=== PATIENT | male | born 1970 | race Caucasian/White ===

== ENCOUNTER → 2021-09-28 | Outpatient (CLI) | payer BC ==
--- NOTE | 2021-09-28 13:42 | CTL ---
EXAMINATION TYPE: CT Low Dose Lung DATE OF EXAM ORDERED: 09/28/2021 HISTORY: 51-year-old male with Z8 7.891, personal history of tobacco use.. Lung cancer screening CT DLP: 80.[address] CTDI: 2.1 mGy Automated exposure control for dose reduction was used. SCREENING VISIT: Baseline exam COMPARISON: None TECHNIQUE: Low dose computed tomography scan was performed through the chest with coronal and sagitta l reconstructions performed. CT DIAGNOSTIC QUALITY: Satisfactory FINDINGS: Heart normal size without pericardial effusion. Aorta normal caliber with conventional branching anatomy. Few nonenlarged lymph nodes in the AP window and lower paratracheal region measuring up to 8 mm. No t horacic lymphadenopathy by CT size criteria. Trace bilateral gynecomastia. There is moderate centrilobular emphysema. Mild diffuse bronchial wall thickening.. Strandy areas of atelectasis or scarring in the lungs. 5 mm subpleural pulmonary nodule periphery of the right lower lung, axial image 232. 7 mm subpleural pulmonary nodule lateral left lower lobe, axial image 26. 8 mm irregular nodule right upper lobe, axial image 115. Tiny adjacent 4 mm nodule just below, axial image 1:30. No consolidation or pleural effusion. Prominent ingested debris distending the stomach. Otherwise, visualized upper abdomen. Bones: Mild degenerative disc disease lower thoracic spine. Chronic appearing minimal anterior wedgin g at T11 with accentuated lower thoracic kyphosis. IMPRESSION: 1. LungRADS Category 4A ( Probably suspicious, 5-15% chance of malignancy). Scattered pulmonary nodul es, largest is irregular in the right upper lobe measuring up to 8 mm. Three-month follow-up CT to re assess. If any enlarging nodules are encountered at that time, recommend pulmonary/surgical evaluatio n and/or PET/CT. 2. COPD with moderate emphysema. Recommend smoking cessation. CT LUNG RAD AND CT CHEST RECOMMENDATION: Lung-Rad 4A Suspicious: Follow-up 3 month LDCT or PET/CT may be used when there is a > 8 mm solid component.
== END | disposition home or self-care (01) ==
LOC: RADCTMAIN 13:09
PROVIDERS: ATTEND Family Medicine
DX: Z12.2 Encounter for screening for malignant neoplasm of respiratory organs (principal); J43.9 Emphysema, unspecified; Z72.0 Tobacco use
CPT/HCPCS: 71271

== ENCOUNTER → 2021-12-28 | Outpatient (CLI) | payer BC ==
--- NOTE | 2021-12-28 13:07 | CT ---
EXAMINATION TYPE: CT chest w con DATE OF EXAM: 12/28/2021 COMPARISON: CT dated 09/28/2021 HISTORY: Pulmonary nodule CT DLP: 535 mGycm Automated exposure control for dose reduction was used. TECHNIQUE: CT scan of the chest is performed with IV Contrast, patient injected with 100 ml mL of Isovue 300. FINDINGS: LUNGS: The previously described irregular 8mm nodule in the right upper lobe has completely resolved in the interim consistent with a completely resolved inflammatory/infectious lesion. The adjacent 4 m m nodule is actually smaller measuring 3 mm today. Stable 7 mm left lower lobe pleural-based nodule a s well as the 5 mm nodule at the anterolateral aspect of the right lower lobe. No definite new or pro gressive lung nodule identified. Persistent moderate pulmonary emphysematous changes, predominantly c entrilobular and most evident involving the right upper lobe. Patent central airways. No pleural effu nadine or pneumothorax. MEDIASTINUM: No gross cardiomegaly. No pericardial effusion. The pulmonary trunk measures 2.9 cm. Unr emarkable major mediastinal vessels. No pathologically enlarged lymph nodes in the chest. OTHER: Stable anterior wedging of T11 vertebral body. IMPRESSION: Complete resolution of the previously seen irregular 8 mm lesion in the right upper lung lobe. Stable remainder of the previously described lung nodules measuring up to 7 mm. No new or progressive lung nodule. Recommend continued annual screening in 12 months. Other incidental findings as described abo ve.
== END | disposition home or self-care (01) ==
LOC: RADCTMAIN 10:19
PROVIDERS: ATTEND Internal Medicine
DX: R91.1 Solitary pulmonary nodule (principal)
CPT/HCPCS: 71260; Q9967

== ENCOUNTER → 2023-01-17 | Outpatient (CLI) | payer BC ==
--- NOTE | 2023-01-18 11:08 | CT ---
EXAMINATION TYPE: CT chest w con CT DLP: 420.3 mGycm, Automated exposure control for dose reduction was used. DATE OF EXAM: 01/17/2023 4:49 PM COMPARISON: Multiple CTs of the chest with most recent on 12/28/2021 and 09/28/2021 CLINICAL INDICATION:Male, 52 years old with history of R91.1 pulmonary nodule; Follow up for lung nod ule. TECHNIQUE: Multiple axial images were obtained through the chest. Sagittal and coronal reformats were created for review. Contrast used:100cc mL of Isovue 300 with IV Contrast Oral contrast used: none. FINDINGS: LUNGS/ PLEURA: * Right lower lobe 5 mm pulmonary nodule laterally series 3 image 40 is stable given differences in technique back to 2020. * Left lower lobe 6 cm pulmonary nodule laterally series 3 image 48 is stable given differences in t echnique back to 2020. * Right upper lobe irregular nodule is less solid component on today's exam and more groundglass ish suring 9 mm. Series 3 image 26. Moderate centrilobular emphysema changes. No focal consolidation, pneumothorax or pleural effusion. N o new pulmonary nodules. AIRWAY: Patent and unremarkable. HEART: Size within normal limits. MEDIASTINUM: No gross evidence of adenopathy. VASCULATURE: No aortic aneurysm. MUSCULOSKELETAL: No acute osseous abnormalities, increased kyphotic curvature of the lower thoracic s pine. Mild multilevel disc degeneration changes. SOFT TISSUES/LYMPH NODES: Mild gynecomastia changes bilaterally. LOWER NECK: No significant findings. UPPER ABDOMEN: No significant findings. IMPRESSION: 1. Stable or improved pulmonary nodules. No new suspicious pulmonary nodules. Continued low dose danial g screening yearly for surveillance is recommended. 2. Moderate emphysema.
== END | disposition home or self-care (01) ==
LOC: RADCTMAIN 16:24
PROVIDERS: ATTEND Internal Medicine
DX: J43.2 Centrilobular emphysema (principal); R91.8 Other nonspecific abnormal finding of lung field
CPT/HCPCS: 71260; Q9967

== ENCOUNTER → 2024-11-12 | Outpatient (CLI) | payer BC ==
--- NOTE | 2024-11-12 12:37 | CTL ---
EXAMINATION TYPE: CT Low Dose Lung DATE OF EXAM ORDERED: 11/12/2024 COMPARISON: Prior chest CT January 17, 2023 and older studies. CLINICAL INDICATION: Male, 54 years old with history of Z12.2 SCREENING LUNG CA Z87.891 FORMER SMOKER ; [facility], Former smoker, 1.5 ppd x 22 years., Lung cancer screening, History of Smoking/tobacco use. TECHNIQUE: Low dose computed tomography scan was performed through the chest at 1 mm thick sections a nd reconstructed images in multiple planes at 1 mm and [address] DLP: 77.[address] CTDI: 2.1 mGy Automated exposure control for dose reduction was used. CT DIAGNOSTIC QUALITY: Satisfactory FINDINGS: Nodules: RUL: More prominent scarlike opacity in the lateral right upper lobe measures 2.0 x 2.1 cm axial sheldon ge 124. Currently only slight nodular thickening inferiorly is present. RML: None. RLL: Stable 4 to 5 mm peripheral right lower lobe pulmonary nodule axial image 233. MUNA: None. LLL: Stable 6 x 5 mm peripheral left lower lobe pulmonary nodule axial image 234. There is new 9 mm groundglass nodule medial left lower lobe axial image 152. LUNGS: COPD: Severity: Moderate Fibrosis: Severity: None Lymph nodes: None Other findings: None RIGHT PLEURAL SPACE: Effusion: None Calcification: None Thickening: None Pneumothorax: None LEFT PLEURAL SPACE: Effusion: None Calcification: None Thickening: None Pneumothorax: None HEART: Heart Size: Normal Coronary Calcification: None Pericardial Effusion: None OTHER FINDINGS: Upper abdomen: None Bony thorax: None Supraclavicular region: None Other: None IMPRESSION: Some new suspicious areas are present. CT LUNG RAD AND CT CHEST RECOMMENDATION: Lung-Rad 4A Suspicious: Follow-up 3 month LDCT or PET/CT may be used when there is a > 8 mm solid component. S Modifier (other clinically significant findings): None Advise follow-up CT in 3 months to reassess particularly right upper lobe area of increasing size wit hout greater than 8 mm nodular solid component. [facility], , 11/12/2024 12:35 PM
== END | disposition home or self-care (01) ==
LOC: RADCTMAIN 10:48
PROVIDERS: ATTEND Internal Medicine
DX: Z12.2 Encounter for screening for malignant neoplasm of respiratory organs (principal); F17.210 Nicotine dependence, cigarettes, uncomplicated
CPT/HCPCS: 71271

== ENCOUNTER → 2024-11-26 | Outpatient (CLI) | payer BC ==
--- NOTE | 2024-11-26 16:11 | PE ---
EXAMINATION TYPE: PET CT fusion skull to thigh DATE OF EXAM: 11/26/2024 COMPARISON: Low-dose lung screening CT November 12, [address] studies[address] HISTORY: Solitary pulmonary nodule, abnormal CT. TECHNIQUE: Following the intravenous administration of 9.49 mCi of F-18 FDG, whole body images are p erformed from the skull base to the midthigh. Images are reviewed on the computer in the coronal, ax ial, and sagittal planes. Reconstructed rotating images are created on independent workstation and r eviewed on the computer. A localization and attenuation correction CT is performed in conjunction w ith the PET scan. Blood glucose level equals 86. SCAN: Initial Scan FINDINGS: SKULL BASE AND NECK: No areas of abnormal suspicious hypermetabolic uptake. CHEST, MEDIASTINUM, AND HILAR REGION: Moderate underlying emphysematous change is redemonstrated. Per sistent heterogeneous scar like opacity in the right upper lobe measuring 1.6 x 1.5 cm axial image 94 . No abnormal hypermetabolic uptake. Superior medial left upper lobe subcentimeter groundglass opacit y axial image 98 is less prominent without abnormal hypermetabolic uptake. No abnormal hypermetabolic uptake in the entire thorax. ABDOMEN AND PELVIS: Normal excretion is present. No hypermetabolic adrenal masses. No suspicious hype rmetabolic uptake. OSSEOUS STRUCTURES: No abnormal hypermetabolic uptake. OTHER CT: No suspicious incidental finding. IMPRESSION: No abnormal hypermetabolic uptake to suggest malignancy. Favor postinflammatory change an d/or scar tissue. Advise follow-up CT in 3-6 months time to reassess. [facility], , 11/26/2024 4:08 PM
== END | disposition home or self-care (01) ==
LOC: RADPETMAIN 13:28
PROVIDERS: ATTEND Internal Medicine
DX: R91.8 Other nonspecific abnormal finding of lung field (principal)
CPT/HCPCS: 78815; A9552

== ENCOUNTER → 2025-04-15 | Outpatient (CLI) | payer BC ==
--- NOTE | 2025-04-15 12:12 | CT ---
EXAMINATION TYPE: CT chest w con DATE OF EXAM: 04/15/2025 11:38 AM COMPARISON: 11/26/2024, 01/17/2023, 11/12/2024 CLINICAL INDICATION: Male, 54 years old with history of R91.8 OTHER NONSPECIFIC ABNORMAL FINDING OF L KARUNA F; [facility], lung nodule TECHNIQUE: Multiple axial images were obtained through the chest. Sagittal and coronal reformats were created for review. MIP was performed on a separate workstation. Contrast used:100 mL of Isovue 300 with IV Contrast (None if empty) Oral contrast used: (None if empty) CT DLP: 539 mGycm, Automated exposure control for dose reduction was used. FINDINGS: LUNGS/ PLEURA: Stable right midlung/upper lobe reticular groundglass opacity region measuring up to 2 1 mm previously 12 mm and 01/17/2023. There is moderate centrilobular emphysema changes throughout the lungs. Stable right lower lobe lateral pulmonary nodule measuring 4 mm series 3 image 52 dating back to at least . Stable left lower lobe lateral subpleural nodule measuring 5 mm dating back to at least 2022. No focal consolidation, pneumothorax or pleural effusion. AIRWAY: Patent and unremarkable. HEART: Size within normal limits. No significant coronary artery calcifications. MEDIASTINUM: No gross evidence of adenopathy. VASCULATURE: No aortic aneurysm. MUSCULOSKELETAL: No acute osseous abnormalities SOFT TISSUES/LYMPH NODES: Unremarkable. LOWER NECK: No significant findings. UPPER ABDOMEN: No significant findings. IMPRESSION: Area within the right midlung/superior lobe has steadily increased in size from 01/17/2023 now measuri ng 21 mm previously 12 mm. Findings could represent minimally invasive bronchoalveolar carcinoma supe rimposed on moderate emphysema. Continued surveillance recommended. [facility], , 04/15/2025 12:09 PM
== END | disposition home or self-care (01) ==
LOC: RADCTMAIN 10:45
PROVIDERS: ATTEND Internal Medicine
DX: R91.8 Other nonspecific abnormal finding of lung field (principal); J43.2 Centrilobular emphysema
CPT/HCPCS: 71260; Q9967

== ENCOUNTER 2025-05-05 09:34 | Day surgery (SDC) | payer BC ==
[2025-05-04 09:55] VITALS: BMI 25.7
[~2025-05-05 09:34] MED LIST: LACTATED RINGERS 1,000 ML IV SCH
[2025-05-05 10:13] VITALS: TEMP 97.5
[2025-05-05] MEDS: IV FLUID CONTINUATION 1,000 ML IV ONE (10:13)
[2025-05-05] MEDS: LACTATED RINGERS 1,000 ML IV SCH (10:13)
--- NOTE | 2025-05-05 10:21 | CT ---
EXAMINATION TYPE: CT Chest wo ION protocol DATE OF EXAM: 05/05/2025 COMPARISON: CT chest 04/15/2025, 01/17/2023, 12/28/2021 PET/CT 11/26/2024, CT low-dose lung 11/12/2024, CLINICAL INDICATION: Male, 54 years old with history of ION BRONCH; [facility], pre surgical ion TECHNIQUE: CT scan of the thorax is performed without IV contrast. CT DLP: 331.[address] CTDI: 9.00 mGy Automated exposure control for dose reduction was used. FINDINGS: LUNGS: No pleural effusion or pneumothorax. Moderate centrilobular emphysematous changes. Stable righ t upper lobe 2.2 x 1.9 cm reticular groundglass lesion from most recent CT (series 4, image 124). Pre viously measured up to 1.[address] in 2022 Stable right lower lobe 4.8 mm solid pulmonary nodule abu tting the major fissure (series 4, image 237). Stable left lower lobe pleural-based 8.6 x 1 cm nodule (series 4, image 234). No new suspicious pulmonary nodules or masses. There is no pleural effusion o r pneumothorax seen. The tracheobronchial tree is patent. MEDIASTINUM: Lack of IV contrast is noted to limit evaluation for mediastinal and especially hilar ad enopathy. There are no definitive greater than 1 cm hilar or mediastinal lymph nodes. No cardiomega ly or pericardial effusion is seen. HEART: Size within normal limits. No significant coronary artery calcifications. OTHER: Bilateral gynecomastia. IMPRESSION: Stable reticular groundglass lesion within the right upper lobe from most recent CT but has increased in size from CT in 2022. This again could represent minimally invasive bronchioloalveolar carcinoma versus other etiologies. Additional stable few scattered pulmonary nodules dating back to 2020 and fa vored to be benign. [facility], , 05/05/2025 10:18 AM
[2025-05-05] MEDS ORDERED: MIDAZOLAM 2 MG/2 ML VIAL ONE (10:44)
[2025-05-05] MEDS ORDERED: fentaNYL (PF) 50 MCG/ML 2 ML AMP ONE (10:44)
[2025-05-05] MEDS ORDERED: PROPOFOL 10 MG/ML 20 ML VIAL IV ONE (10:44)
[2025-05-05] MEDS ORDERED: PHENYLEPHRINE 10 MG/ML VIAL ONE (10:44)
[2025-05-05] MEDS ORDERED: ROCURONIUM 10 MG/ML (5 ML VIAL) IV ONE (10:44)
--- NOTE | 2025-05-05 11:26 | P.PCN ---
Date of Procedure: 05/05/25 Operative Findings: Preoperative Diagnosis: Right upper lobe ground glass nodule Postoperative Diagnosis: Right upper lobe ground glass nodule, 2.2 cm Procedure(s) Performed: Flexible bronchoscopy Robotic-assisted bronchoscopy and addition to radial ultrasound evaluation of the right upper lobe ground glass nodule Robotic-assisted transbronchial needle aspirate, transbronchial biopsies, transbronchial brushing of the right upper lobe ground glass nodule in addition to a bronchioloalveolar lavage Anesthesia: BRADY Surgeon: Sonali Stroud Estimated Blood Loss (ml): 0 Pathology: other Condition: stable Disposition: same day Operative Findings: A physical exam was performed. Informed consent was obtained from the patient after explaining all the risks (pneumothorax, life threatening bleeding, infection and adverse effects due to medications), benefits and alternatives to the procedure which the patient appeared to understand and so stated. The patient was connected to the monitoring devices. General anesthesia was induced and the patient was intubated by anesthesia. A final timeout was performed and the procedure confirmed by the attending staff bronchoscopist. The bronchoscope was inserted and the airway examined. The flexible bronchoscope was removed and the robotic bronchoscope was inserted. Registration was completed. I next guided the robotic bronchoscope using the navigation system into the right upper lobe posterior segment. Once in proper position, the bronchoscope was frozen. The radial EBUS probe was placed through the bronchoscope and confirmed abnormal u/s images vs normal lung. U/S evaluation was then used to reconfirm location. Forceps were next introduced through working channel and extended the appropriate distance and 3 transbronchial biopsies were performed using fluoroscopic guidance. The u/s probe was then reinserted to confirm location. When confirmed this process was repeated for a total of 8-10 transbronchial biopsies. After reassessment with EBUS, a brush was placed through the extendable working channel for 1 pass with fluoroscopic guidance. U/S evaluation was then used to confirm location. 40ml of saline was then instilled into the area of the lesion. The robotic bronchoscope was removed and the airway inspected with a flexible bronchoscope and 10 ml of effluent from the BAL was collected. The aspirate was bloody and ultimately declotted and based on that, the sample was discarded. Fluoroscopic check for pneumothorax was negative upon completion of the procedure. There was 0 ml blood loss with the procedure. Flex bronchoscope was inserted and regular suctioning was done. At the completion of the procedure, no residual secretions or bloody material within the airway. The bronchoscope was removed. The patient was extubated. FINDINGS: 1.The airways appeared normal 2 Successful navigation, ultrasonographic identification, and biopsies of right upper lobe ground glass nodule RECOMMENDATIONS: Await pathology and cytology results The referring physician will be alerted to the results when available. The patient was advised to follow up with the referring physician with the biopsy results Patient will be called with results.
--- NOTE | 2025-05-05 11:29 | FL ---
EXAMINATION TYPE: FL bronchoscopy Intraoperative/procedural fluoroscopic services were provided. CLINICAL INDICATION:Male, 54 years old with history of Abn. Lung; , [facility] FINDINGS: Fluoroscopic images demonstrating right upper lung bronchoscopy with biopsy. No radiographic evidence for complication. Total fluoroscopy time is 1.22 min. DAP: 3.4948 Gycm2 uGym2 mGym2 Please see the operative/procedural note for further details. [facility], , 05/05/2025 11:26 AM
--- NOTE | 2025-05-05 12:12 | XR ---
EXAMINATION TYPE: XR chest 1V DATE OF EXAM: 05/05/2025 12:04 PM COMPARISON: Fluoroscopic bronchoscopy images 05/05/2025, CT chest 05/05/2025, chest radiograph 04/25/2025 TECHNIQUE: XR chest 1V Portable AP radiograph of the chest. CLINICAL INDICATION:Male, 54 years old with history of post bx; FINDINGS: Lungs/Pleura: No pneumothorax or pleural effusion. Right upper to midlung patchy reticular opacities are new. Pulmonary vascularity: Unremarkable. Heart/mediastinum: Cardiomediastinal silhouette is unremarkable. Musculoskeletal: No acute osseous pathology. IMPRESSION: New patchy reticular opacities within the right upper to midlung. Most consistent with bronchoscopy b iopsy changes. No pneumothorax. [facility], , 05/05/2025 12:10 PM
[2025-05-05 12:13] VITALS: BP 138/66; PULSE 75; RESP 20
== END 2025-05-05 12:45 ==
LOC: ORWHC2ENDO 09:34
PROVIDERS: ATTEND Internal Medicine Critical Care Medicine
DX: C34.11 Malignant neoplasm of upper lobe, right bronchus or lung (principal); J44.9 Chronic obstructive pulmonary disease, unspecified; F12.90 Cannabis use, unspecified, uncomplicated
CPT/HCPCS: 87798 ×3; 87496; 87498; 87529; 88108; 88305; 88342; 87502; 87634; 88341; 87070; 87205; 87116; 87102; 87206; 87635; 71045; 71250; 31628; 31623; 31624; 31654; J2250; J3010; J2704; J2371; S2900

== ENCOUNTER 2025-05-15 17:51 | Observation (INO) | payer BC ==
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
--- NOTE | 2025-05-15 19:05 | XR ---
EXAMINATION TYPE: XR chest 2V DATE OF EXAM: 05/15/2025 6:47 PM COMPARISON: Chest radiographs from 05/05/2025. CLINICAL INDICATION: Male, 54 years old with history of Hemoptysis; [facility] TECHNIQUE: XR chest 2V Frontal and lateral views of the chest. FINDINGS: Lungs/Pleura: There is flattening of the diaphragm with increased lucency of the lungs. No evidence o f pneumothorax, pleural effusion or focal consolidation. Pulmonary vascularity: Unremarkable. Heart/mediastinum: Cardiomediastinal silhouette is unremarkable. Musculoskeletal: No acute osseous pathology. Other findings: None IMPRESSION: 1. No acute cardiopulmonary disease process. 2. COPD changes. [facility], , 05/15/2025 7:02 PM
[2025-05-15 20:23] LABS: Basophils # (A) 0.07 10*3/uL (0.00-0.10); Basophils % (A) 0.7 %; Eosinophils # (A) 0.12 10*3/uL (0.04-0.35); Eosinophils % (A) 1.1 %; HCT 42.2 % (39.6-50.0); HGB 14.6 g/dL (13.0-17.0); Lymphocytes # (A) 3.21 10*3/uL (0.90-5.00); Lymphocytes % (A) 30.3 %; MCH 30.8 pg (27.0-32.0); MCHC 34.6 g/dL (32.0-37.0); MCV 89.0 fL (80.0-97.0); Monocytes # (A) 0.78 10*3/uL (0.20-1.00); Monocytes % (A) 7.4 %; Neutrophils # (A) 6.38 10*3/uL (1.80-7.70); Neutrophils % (A) 60.2 %; Platelet Count 347 10*3/uL (140-440); RBC 4.74 10*6/uL (4.40-5.60); RDW 12.7 % (11.5-14.5); WBC 10.59 10*3/uL (4.50-10.00)
[2025-05-15] MEDS: IPRATROPIUM-ALBUTEROL 3 ML NEB INHALATION STA (20:27)
[2025-05-15 20:46] LABS: ALT 31 U/L (4-49); AST 21 U/L (17-59); African American GFR (CKD) >90 (>60 ml/min/1.73 sqM); Albumin 4.6 g/dL (3.5-5.0); Alkaline Phosphatase 64 U/L (38-126); Anion Gap 12 mmol/L; Blood Urea Nitrogen 14 mg/dL (9-20); Calcium 9.8 mg/dL (8.4-10.2); Carbon Dioxide 25 mmol/L (22-30); Chloride 99 mmol/L (98-107); Glucose 115 mg/dL (74-99); Non-African American GFR(CKD) >90 (>60 ml/min/1.73 sqM); Potassium 4.7 mmol/L (3.5-5.1); Sodium 136 mmol/L (137-145); Total Protein 7.4 g/dL (6.3-8.2)
[2025-05-15] MEDS ORDERED: HYDROmorphone 1 MG/ML 1 ML SYRINGE IVP PRN (21:39)
[2025-05-15] MEDS ORDERED: HYDROmorphone 0.5 MG/0.5 ML SYRINGE IVP PRN (21:39)
[2025-05-15] MEDS ORDERED: ONDANSETRON 4 MG/2 ML VIAL IVP PRN (21:39)
[2025-05-15] MEDS ORDERED: NALOXONE 0.4 MG/ML 1 ML VIAL IV PRN (21:39)
[2025-05-15] MEDS ORDERED: ACETAMINOPHEN TAB 325 MG TAB PO PRN (21:39)
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
[2025-05-16 06:30] LABS: INR 1.0 (<1.2); Partial Thromboplastin Time 25.3 sec (22.0-30.0); Prothrombin Time 10.8 sec (10.0-12.5)
[2025-05-16 06:49] VITALS: BP 107/68; PULSE 64; RESP 18; TEMP 96.9
[2025-05-16 13:19] LABS: HCT 39.9 % (39.6-50.0); HGB 13.7 g/dL (13.0-17.0); MCH 31.2 pg (27.0-32.0); MCHC 34.3 g/dL (32.0-37.0); MCV 90.9 fL (80.0-97.0); Platelet Count 321 10*3/uL (140-440); RBC 4.39 10*6/uL (4.40-5.60); RDW 12.8 % (11.5-14.5); WBC 7.91 10*3/uL (4.50-10.00)
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
--- NOTE | 2025-05-17 12:32 | P.DS ---
Providers Date of admission: 05/15/25 21:41 Expected date of discharge: 05/16/25 Attending physician: Cherelle Willis Consults: 05/15/25 21:39 Consult Physician Stat Consulting Provider: Herbert Loera Reason/Comments: Ongoing hemoptysis Do you want consulting provider notified?: Already Contacted Primary care physician: Loren Loredo Hospital Course: Discharge diagnosis reoccuring hemoptysis recent robotic assisted bronchoscopy of the right upper lobe showing positive for pulmonary adenocarcinoma History of COPD Ex-smoker History of marijuana use Hospital course This is a 54-year-old male patient who presented with complaints of hemoptysis. Patient has a history of right upper lobe pulmonary nodule and recently underwent robotic assisted bronchoscopy of the right upper lobe today pathology was positive for pulmonary adenocarcinoma patient was hospitalized on May 13 due to hemoptysis. Symptoms had resolved and patient was discharged home according to records patient was eating dinner when he developed reoccurring thomas red blood. Chest x-ray performed showing no acute cardiopulmonary disease or process. COPD changes. Lab work completed showing white blood cell 10.59, hemoglobin 14.64, creatinine 0.71 bun 14. Being addressed with at this time patient will be admitted and pulmonary services will be consulted. Patient denies chest pain or shortness of breath. Patient denies nausea vomiting or diarrhea. Patient denies any urinary burning or frequency No further episodes of bleeding patient cleared for discharge from pulmonary standpoint patient to follow-up with consulting providers and PCP Patient Condition at Discharge: Stable Plan - Discharge Summary Discharge Rx Participant: Yes New Discharge Prescriptions: No Action No Known Home Medications Discharge Medication List No Known Home Medications 05/04/25 [History] Follow up Appointment(s)/Referral(s): Loren Loredo MD [Primary Care Provider] - 1-2 days Patient Instructions/Handouts: Coughing Up Blood (Hemoptysis) (ED) Discharge Disposition: HOME SELF-CARE
== END 2025-05-16 15:57 | disposition home or self-care (01) ==
LOC: EC 17:51 → 6NMEDSUR 21:41 → 1SOBS 05-16 05:13
PROVIDERS: ADMIT Internal Medicine; ATTEND Internal Medicine
DX: R04.2 Hemoptysis (principal); J06.9 Acute upper respiratory infection, unspecified; C34.90 Malignant neoplasm of unspecified part of unspecified bronchus or lung; J43.8 Other emphysema; F12.90 Cannabis use, unspecified, uncomplicated; Z87.891 Personal history of nicotine dependence; Z80.9 Family history of malignant neoplasm, unspecified
CPT/HCPCS: 99285; 36415; 80053; 85025; 85027; 85610; 85730; 71046; G0378 ×3

== ENCOUNTER → 2025-05-30 | Outpatient (CLI) | payer BC ==
[2025-05-30 11:02] LABS: INR 1.0 (<1.2); Partial Thromboplastin Time 24.6 sec (22.0-30.0); Prothrombin Time 10.8 sec (10.0-12.5)
[2025-05-30 15:17] LABS: HCT 43.6 % (39.6-50.0); HGB 14.3 g/dL (13.0-17.0); MCH 30.2 pg (27.0-32.0); MCHC 32.8 g/dL (32.0-37.0); MCV 92.0 FL (80.0-97.0); NRBC Per 100 WBC 0 X 10*3/uL (0.00-0.01); Platelet Count 426 X 10*3/uL (140-440); RBC 4.74 X 10*6/uL (4.40-5.60); RDW 13.1 % (11.5-14.5); WBC 6.90 X 10*3/uL (4.50-10.00)
[2025-05-30 15:37] LABS: ALT 114 U/L (10-49); AST 27 U/L (14-35); Albumin 4.7 g/dL (3.8-4.9); Albumin/Globulin Ratio 1.68 Ratio (1.60-3.17); Alkaline Phosphatase 80 U/L (41-126); Anion Gap 11.00 mmol/L (4.00-12.00); BUN/Creat Ratio 11.50 Ratio (12.00-20.00); Blood Urea Nitrogen 9.2 mg/dL (9.0-27.0); Calcium 9.7 mg/dL (8.7-10.3); Carbon Dioxide 25.0 mmol/L (21.6-31.8); Chloride 100 mmol/L (96-109); Globulin 2.8 g/dL (1.6-3.3); Glucose 103 mg/dL (70-110); Potassium 4.5 mmol/L (3.5-5.5); Sodium 136 mmol/L (135-145); Total Protein 7.5 g/dL (6.2-8.2)
[2025-05-30 16:28] LABS: Bilirubin,Urine Negative (Negative); Blood,Urine Negative (Negative); Color,Urine Yellow (Yellow); Ketones,Urine Negative (Negative); Nitrite,Urine Negative (Negative); PH, Urine 7.5; Specific Gravity,Urine 1.008 (1.001-1.030); Urobilinogen,Urine 0.2 E.U./DL
== END | disposition home or self-care (01) ==
LOC: LABPAT 10:15
PROVIDERS: ATTEND Student in an Organized Health Care Education/Training Program
DX: Z01.812 Encounter for preprocedural laboratory examination (principal); C34.90 Malignant neoplasm of unspecified part of unspecified bronchus or lung
CPT/HCPCS: 80053; 81003; 85027; 85610; 85730; 86850; 86900; 86901